=== PATIENT | male | born 1990 | race Caucasian/White ===

== ENCOUNTER 2023-07-03 19:27 | Emergency (ER) | payer OTHER, SELFPAY ==
[2023-07-03 19:31] VITALS: BP 153/100; PULSE 83; RESP 16; TEMP 36.8
--- NOTE | 2023-07-03 20:29 | PC.NURSE ---
sitting on stretcher waiting on er provider to evaluate him. denies any other needs.
--- NOTE | 2023-07-03 20:47 | ED.GENADULT ---
HPI - General Adult General Chief complaint: Skin/Abscess/Foreign Body Stated complaint: rash; insect bite Time Seen by Provider: 07/03/23 20:46 History of Present Illness HPI narrative: 33-year-old white male complains of a bug bite on his left bicep has been there for 24 hours now has a red streak going up his arm. It really have any pain but it looks like it is getting worse. Otherwise patient is eating and drinking voiding and stooling fine walking talking seeing hearing okay no other rash or itching no bleeding or bruising no weakness or numbness or tingling no dizziness or lightheadedness no fever cough runny nose sore throat or any other complaints. Allergies none Past medical history no significant past medical history Surgeries none Social history he is in the financial industry. He does not smoke drink or do any drugs. Related Data Allergies Allergy/AdvReac Type Severity Reaction Status Date / Time No Known Allergies Allergy Unverified 10/02/14 11:24 Review of Systems Review of Systems: All systems reviewed & are unremarkable except as noted in HPI and below Exam Narrative: White male no apparent distress head is normocephalic atraumatic eyes conjunctiva pink. External ears are normal. Skin and left upper extremity he has a small pimple papule of his biceps surrounded by erythema with a red streak going toward the shoulder. There is no swelling or increased warmth. Radial pulses +2. Neurological he is alert and oriented x4 motor and sensory grossly intact Course Vital Signs Vital signs: Vital Signs Temperature 36.8 C 07/03/23 19:31 Pulse Rate 83 07/03/23 19:31 Respiratory Rate 16 07/03/23 19:31 Blood Pressure 153/100 H 07/03/23 19:31 Temperature 36.8 C 07/03/23 19:31 Pulse Rate 83 07/03/23 19:31 Respiratory Rate 16 07/03/23 19:31 Blood Pressure 153/100 H 07/03/23 19:31 Medical Decision Making [facility] Narrative Medical decision making narrative: ? Patient placed in room: 5 ? History and physical was performed. Independent Historian: patient External Source Review: Differential Dx includes but not limited to: cellulitis insect bite Medications were Reviewed: Medications given: Augmentin 875 Independently Interpreted by me: Shared decision Making: evaluation was discussed all questions were asked and answered patient agreed with plan. He would take Augmentin 875 for 5 days. Social Situation Impacting Patients Care: Discussed with Dr. DEY DIAGNOSIS: Cellulitis probable insect bite left upper extremity DISPOSITION: discharge home CONDITION AT DISCHARGE: stable Vital Signs Vital Signs: Vital Signs Temperature 36.8 C 07/03/23 19:31 Pulse Rate 83 07/03/23 19:31 Respiratory Rate 16 07/03/23 19:31 Blood Pressure 153/100 H 07/03/23 19:31 Temperature 36.8 C 07/03/23 19:31 Pulse Rate 83 07/03/23 19:31 Respiratory Rate 16 07/03/23 19:31 Blood Pressure 153/100 H 07/03/23 19:31 Discharge Plan Discharge Clinical Impression: Cellulitis Qualifiers: Site of cellulitis: extremity Site of cellulitis of extremity: upper extremity Laterality: left Qualified Code(s): L03.114 - Cellulitis of left upper limb Insect bite Qualifiers: Encounter type: initial encounter Site of insect bite: upper arm Laterality: left Qualified Code(s): S40.862A - Insect bite (nonvenomous) of left upper arm, initial encounter Patient Disposition: Home, Self-Care Condition: Stable Instructions: Antibiotic Form, Cellulitis (ED) Additional Instructions: take Augmentin 875 twice a day for 5 days. Take Tylenol as needed for pain. Prescriptions: New amoxicillin-pot clavulanate 875-125 mg tablet 1 tablet PO Q12H 5 Days Qty: 10 0RF Follow-up/Referrals: Sari,Uriah Waggoner MD [Primary Care Provider] - Time of Disposition: 20:58
[2023-07-03] MEDS: AMOXICILLIN/CLAVULANATE K 875-125 MG TAB 1 TABLET PO (20:59)
[2023-07-03 21:11] VITALS: BP 133/86; PULSE 88; RESP 18; O2SAT 96
== END 2023-07-03 21:11 | disposition home or self-care (01) ==
LOC: CHSED 21:02
PROVIDERS: Emergency Provider Emergency Medicine; PCP Family Medicine
DX: L03.114 Cellulitis of left upper limb (principal); S40.862A Insect bite (nonvenomous) of left upper arm, initial encounter; W57.XXXA Bitten or stung by nonvenomous insect and other nonvenomous arthropods, initial encounter
CPT/HCPCS: 99283; A9270